=== PATIENT | female | born 1990 | race Caucasian/White ===

== ENCOUNTER 2020-05-05 14:54 | Outpatient (CLI) | payer OTHER ==
--- NOTE | 2020-05-05 15:14 | RAD ---
Exam: XR Shoulder Rt 3 View STANDARD HISTORY: Acute pain right shoulder after injury one week ago. COMPARISON: 10/03/2014 FINDINGS: There is a fracture involving the greater tuberosity of the right humerus which does appear slightly comminuted. No additional fracture is seen, and there is no dislocation. There is questionable mild subluxation of the humeral head with respect to the glenoid, but this may be projectional. Coracoclavicular and acromioclavicular distances are within normal limits. IMPRESSION: Mildly comminuted avulsion fracture greater tuberosity right humeral head.
== END 2020-05-05 14:55 | disposition home or self-care (01) ==
LOC: SCSRAD 14:54
PROVIDERS: ATTEND Family Medicine
DX: M25.511 Pain in right shoulder (principal); S42.251A Displaced fracture of greater tuberosity of right humerus, initial encounter for closed fracture

== ENCOUNTER 2022-01-07 05:38 | Day surgery (SDC) | payer BC ==
[2022-01-05 14:48] VITALS: BMI 55.5
[2022-01-07] MEDS ORDERED: fentaNYL Citrate/PF 100 MCG/2 ML SYRINGE ONE ×2 (06:13→09:03)
[2022-01-07] MEDS ORDERED: Midazolam HCl 2 mg/2 ml Vial ONE (06:13)
[2022-01-07] MEDS ORDERED: HYDROmorphone 0.5 MG/0.5 ML SYRINGE ONE (06:14)
[2022-01-07] MEDS ORDERED: Sodium Chloride 0.9% 100 ML ONE (07:07)
[2022-01-07] MEDS ORDERED: CEFAZOLIN 2 GM VIAL ONE (07:07)
[2022-01-07] MEDS ORDERED: Lidocaine 1% (PF) 30 ML VIAL ONE (07:52)
[2022-01-07] MEDS ORDERED: EPINEPHrine 1 MG/ML AMP ONE (07:52)
[2022-01-07] MEDS ORDERED: SUGAMMADEX SODIUM 200 MG/2 ML VIAL ONE (08:57)
[2022-01-07] MEDS ORDERED: Fentanyl 100 MCG/2 ML VIAL ONE (09:45)
[2022-01-07] MEDS ORDERED: Ketorolac Tromethamine 30 MG/ML VIAL IVP PRN (10:00)
[2022-01-07] MEDS ORDERED: HYDROcodone/Acetaminophen 5/325 mg Tablet PO PRN ×2 (10:00)
[2022-01-07] MEDS ORDERED: Ondansetron PF 4 MG/2 ML Vial IVP PRN (10:00)
[2022-01-07] MEDS ORDERED: Zolpidem Tartrate 5 MG TAB PO PRN (10:00)
[2022-01-07] MEDS ORDERED: Promethazine HCl 25 MG/ML VIAL IM PRN (10:00)
[2022-01-07] MEDS ORDERED: traMADol HCl 50 MG TAB PO PRN ×2 (10:00)
[2022-01-07] MEDS ORDERED: Ropivacaine 0.2% 550 ML 550 ML NERVE BLCK SCH (10:00)
[2022-01-07] MEDS ORDERED: Ketorolac Tromethamine 30 MG/ML VIAL ONE (10:02)
[2022-01-07] MEDS ORDERED: Ondansetron PF 4 MG/2 ML Vial ONE (10:06)
[2022-01-07] MEDS ORDERED: Rocuronium Bromide 10 MG/ML (10ML VIAL) ONE (11:50)
[2022-01-07] MEDS ORDERED: Lidocaine 1% MPF 2 ML VIAL ONE (11:50)
[2022-01-07] MEDS ORDERED: Dexamethasone 20 MG/5 ML VIAL ONE (11:50)
[2022-01-07] MEDS ORDERED: PROPOFOL 200 MG/20 ML VIAL ONE (11:50)
[2022-01-07] MEDS ORDERED: Bupivacaine HCl 0.5%/Epinephrine 1:200,000/PF 30 ml Vial ONE (11:50)
[2022-01-07] MEDS ORDERED: ePHEDrine 50 MG/ML VIAL ONE (11:50)
[2022-01-07] MEDS ORDERED: Ondansetron ODT 4 MG TAB ONE (11:55)
[2022-01-07] MEDS ORDERED: Morphine 2 MG/ML VIAL ONE (11:55)
== END 2022-01-07 12:20 | disposition home or self-care (01) ==
LOC: SDC 05:38
PROVIDERS: ATTEND Orthopaedic Surgery
PROC: 0RBJ4ZZ Excision of Right Shoulder Joint, Percutaneous Endoscopic Approach (ICD-10-PCS; principal; 2022-01-07)
DX: M75.111 Incomplete rotator cuff tear or rupture of right shoulder, not specified as traumatic (principal); M25.311 Other instability, right shoulder; Z87.81 Personal history of (healed) traumatic fracture
CPT/HCPCS: A4306; J0171; J0690; J1100; J1170; J1885; J2001; J2250; J2270; J2405; J2704; J2795; J3010; J3490; Q0162

== ENCOUNTER 2023-10-12 16:18 | Outpatient (CLI) | payer BC | END 2023-10-12 16:19 | disposition home or self-care (01) | LOC: SCSRAD 16:18 | PROVIDERS: ATTEND Family Medicine | DX: M23.8X2 Other internal derangements of left knee (principal); M17.12 Unilateral primary osteoarthritis, left knee ==

== ENCOUNTER 2024-05-27 13:24 | Emergency (ER) | payer BC ==
[2024-05-27 14:59] LABS: #Basophils 0.04 10x3/uL (0.0-0.2); %Basophils 0.6 % (0.0-1.0); %Eosinophils 0.8 % (0.0-10.0); %Lymphocytes 29.2 % (21.0-51.0); %Neutrophils 61.1 % (42.0-75.0); Hematocrit 44.5 % (36.0-47.0); Hemoglobin 14.6 g/dL (12.0-16.0); Mean Corpuscular HGB CONC 32.8 g/dL (32.0-36.0); Mean Corpuscular Hemoglobin 27.7 pg (27.0-31.0); Mean Corpuscular Volume 84.3 fL (78.0-98.0); Platelet Count 201 10x3/uL (130-400); RBC Distribution Width 13.4 % (11.5-14.5); Red Blood Cell (RBC) Count 5.28 mill/uL (4.20-5.40)
[2024-05-27 15:06] LABS: Bacteria/HPF None Seen HPF (None Seen); Bilirubin Negative (Negative); Blood, Urine Negative (Negative); CAUTI Indications for Culture Dysuria,urgency,freq; Clarity Clear (Clear); Glucose, Urine (Dipstick) Normal (Negative); Ketone, Urine Negative (Negative); Leukocyte Negative Leu/uL (Negative); Nitrite Negative (Negative); Protein, Urine (Dipstick) Negative (Neg-Trace); RBC/HPF 0-3 HPF (0-3); Specific Gravity, Urine 1.014 (1.002-1.036); Squamous Epithelial 0-3 HPF (0-3); Urobilinogen Normal mg/dL (Less than 2); WBC/HPF 0-3 HPF (0-3)
[2024-05-27 15:12] LABS: ALT (SGPT) 40 U/L (Less than 34); AST (SGOT) 31 U/L (11-34); Albumin 3.8 g/dL (3.1-4.5); Alkaline Phosphatase 76 U/L (40-110); Anion Gap 15 mmol/L (10-20); BUN (Urea Nitrogen) 13 mg/dL (7.0-18.7); Bilirubin, Total 0.3 mg/dL (0.3-1.2); Calc. Creatinine Clearance 0 mL/min (70-130); Carbon Dioxide 17 mmol/L (22-29); Chloride 112 mmol/L (98-107); Estimated GFR 110; Globulin 3.5 g/dL (2.4-3.5); Glucose 83 mg/dL (70-105); Lipase 15 U/L (8-78); Potassium 4.3 mmol/L (3.5-5.1); Protein, Total 7.3 g/dL (6.0-8.3); Sodium 140 mmol/L (136-145)
[2024-05-27 15:15] LABS: Pregnancy Test - Urine (BHCG) Negative (Negative); Pregu Control Background? CLEAR/WHITE (CLR/WHITE); Pregu Control Bar Appear? YES (CONTROL BAR); Specific Gravity 1.014 (1.002-1.036)
[2024-05-27 15:16] LABS: Urine Culture Reflex No No
== END 2024-05-27 17:00 | disposition home or self-care (01) ==
LOC: ERS 13:24
DX: B34.9 Viral infection, unspecified (principal); E86.0 Dehydration
CPT/HCPCS: 80053; 81001; 81025; 83690; 85025; 87428; 96360; 96361